=== PATIENT | female | born 1960 | race Caucasian/White ===

== ENCOUNTER → 2017-03-10 | Outpatient (CLI) | payer OTHER ==
--- NOTE | 2017-03-10 08:01 | RAD ---
EXAM: Left lower extremity venous Doppler. HISTORY: Left thigh pain. COMPARISON: None. FINDINGS: Grayscale and Doppler analysis of the left lower extremity deep venous system was performed with graded compression and augmentation. The common femoral, greater saphenous, superficial femoral, popliteal and calf veins were assessed. There is no evidence of deep venous thrombosis. Images at the site of pain reveal no clear abnormality. IMPRESSION: 1. No evidence of deep venous thrombosis.
== END | disposition home or self-care (01) ==
LOC: US 07:07
PROVIDERS: ATTEND Nurse Practitioner
DX: M79.652 Pain in left thigh (principal)
CPT/HCPCS: 93971